=== PATIENT | male | born 1980 | race Two or more races ===

== ENCOUNTER 2023-01-21 18:08 | Emergency (ER) | payer MEDICAID ==
[~2023-01-21] VITALS: Ht 170.2 cm; Wt 115.8 kg
[2023-01-21 18:38] VITALS: BP 166/82; PULSE 89; RESP 18; TEMP 98.4; O2SAT 97
[2023-01-21] MEDS ORDERED: CEPH500C PO (20:48)
[2023-01-21] MEDS ORDERED: TETANUS-DIPTH-ACEL PERTUSSIS 0.5ML SYR Tdap IM ONE (21:00)
== END 2023-01-21 21:00 | disposition home or self-care (01) ==
LOC: ER 18:08
DX: S51.032A Puncture wound without foreign body of left elbow, initial encounter (principal); Z79.899 Other long term (current) drug therapy; W26.8XXA Contact with other sharp object(s), not elsewhere classified, initial encounter; Y93.89 Activity, other specified; Y92.89 Other specified places as the place of occurrence of the external cause; Y99.8 Other external cause status
CPT/HCPCS: 90471; 90715

== ENCOUNTER 2024-08-17 15:01 | Inpatient (IN) | payer MEDICAID ==
[~2024-08-17] VITALS: Ht 170.2 cm; Wt 112.0 kg
[~2024-08-17 15:01] MED LIST: CEPH500C PO
--- NOTE | 2024-08-17 15:30 | ED.PDOC ---
GI ASSESSMENT HPI Comments HPI: 43Y M presents to ED with chief complaint abd pain since last night with nausea and diarrhea. Pt states abd pain is located in epigastric and umbilical region. Pain worsened and became unbearable after lunch today. Pt denies h/o pain like this in the past. Pt took Omeprazole but did not experience relief. No other symptoms or history reported. Vitals Temperature: 98.3 Respiratory rate: 18 SpO2: 96% on RA Heart rate: 83 Blood pressure: 193/107 and 168/105 Past Medical History: Denies. Past Surgical History: Denies. Social History: Denies alcohol, tobacco, and illicit drug use. ABDOMINAL PAIN HPI: Poor Historian. Abdominal pain nausea vomiting nonbilious nonbloody. Diarrhea brown in color. REVIEW OF SYSTEMS: CONSTITUTIONAL: Denies acute: fever, diaphoresis, chills, generalized weakness. HEAD: Denies acute: headache, photophobia Eyes: Denies acute: Double vision, vision loss, eye pain, eye discharge. EARS: Denies acute: tinnitus, hearing loss, ear discharge, ear pain, THROAT: Denies acute: sore throat, swelling, difficulty swallowing , pain with swallowing, change in voice. NECK: Denies acute: neck pain, neck swelling, stiff neck. HEART: Denies acute : chest pain, palpitations, LUNGS: Denies acute: SOB, wheezing, cough, hemoptysis ABDOMEN: Denies acute: Vomiting, , melena , hematemesis, hematochezia SKIN: Denies acute: rash, redness, lesions, itchiness. EXTREMITIES: Denies acute: calf pain, numbness, tingling, weakness, denies pain in extremity. Denies acute: Low back pain. Neuro: Denies acute: focal neurological deficit, motor or sensory focal neurological deficit, tremors, seizure like activity, confusion, dizziness, change in mental status, loss of bowel or bladder function, cauda equina like symptoms. : Denies acute: dysuria, hematuria, flank pain, increase in urinary frequency. PSYCH: Denies acute: hallucination, suicidal ideation, homicidal ideation. PHYSICAL EXAM: General: ----[id number]-dh-[id number]----acute distress, awake and alert. Head: normocephalic, atraumatic. Neck: supple, trachea is midline, no swelling. Throat: Normal phonation. Eyes:, no erythema, no purulent discharge, no proptosis, no icterus. Heart: regular rate, regular rhythm, no significant murmur appreciated. Lungs: no apparent respiratory distress, Able to speak in full sentences. No wheezing, no rhonchi, no crackles. No stridors Clear to auscultation bilaterally. Abdomen: Epigastric and periumbilical tender to palpation, non distended, soft, no guarding, no rebound, + bowel sounds. Obese Neuro: Awake, Alert, oriented to name, self, situation, follows commands GCS=15. Speech is normal. Skin: no petechia, no purpura, no cyanosis, non-pale, not jaundice. Lower extremities: --no - Pitting edema no deformity, no focal swelling, no calf TTP. Makes eye contact. moves all four extremities. Face: no apparent facial droop. Ambulating in the ED independently. ED COURSE: Time Seen by MD: 15:20 Primary Care Provider: CRYSTAL Reviewed Notes: Nurses Notes, Medications, Allergies Allergies: Coded Allergies: NO KNOWN ALLERGIES (Unverified , 01/21/23) Home Meds Active Scripts Cephalexin Monohydrate (Cephalexin) 500 Mg Cap, 1 CAP PO TID for 7 Days, #21 CAP 0 Refills Prov:CELINA OSBORN 01/21/23 Information Source: Patient Mode of Arrival: Ambulatory Timing: Days Duration: Since onset Prehospital treatment: None Quality: Sharp Vomitus: None Stool: Loose, Brown Severity: Mild Recent: None Recent Hx of: None Pain Location: Epigastric, Other (umbilical) Modifying Factors: Nothing Associated sign and symptoms: Nausea, Diarrhea, Abdominal Pain Was a procedure done? Was a procedure done?: No GI differential Dx Differential Diagnosis: Other (DDX INCLUDE BUT NOT LIMITED TO DIVERTICULITIS, COLITIS, GASTROENTERITIS, ACUTE ABDOMEN, SBO, ENTERITIS, CONSTIPATION, VOLVULUS, APPENDICITIS, GALLBLADDER DISEASE, CHOLEDOCOLITHIASIS, ASCENDING CHOLANGITIS, PANCREATITIS, INTRAABDOMINAL MASS/NEOPLASM, HEPATITIS, UTI, PYLONEPHRITIS, KIDNEY STONE, ANEURYSM, DISSECTION, INFLAMMATORY BOWEL DISEASE, GASTROPARESIS, ISCHEMIC BOWEL.) X-Ray, Labs, Meds, VS Vital Signs Date Time Temp Pulse Resp B/P (MAP) Pulse Ox O2 Delivery O2 Flow Rate FiO2 08/17/24 18:28 98.8 73 18 187/103 (131) 97 98.8 08/17/24 15:20 98.3 83 18 193/107 (135) 96 98.3 168/105 (126) Lab Test 08/17/24 15:31 08/17/24 15:28 Range/Units White Blood Count 11.8 H 4.4-10.8 10^3/uL Red Blood Count 5.55 4.5-5.90 10^6/uL Hemoglobin 16.3 13.5-17.5 g/dL Hematocrit 49.3 41.0-53.0 % Mean Corpuscular Volume 88.9 80.0-100.0 fL Mean Corpuscular Hemoglobin 29.4 28.0-32.0 pg Mean Corpuscular Hemoglobin Concent 33.1 32.0-36.0 g/dL Red Cell Distribution Width 13.8 11.8-14.3 % Platelet Count 331 140-450 10^3/uL Mean Platelet Volume 7.6 6.9-10.8 fL Neutrophils (%) (Auto) 74.9 37.0-80.0 % Lymphocytes (%) (Auto) 14.9 10.0-50.0 % Monocytes (%) (Auto) 6.8 0.0-12.0 % Eosinophils (%) (Auto) 2.7 0.0-7.0 % Basophils (%) (Auto) 0.7 0.0-2.0 % Neutrophils # (Auto) 8.8 H 1.6-8.6 10 ^3/uL Lymphocytes # (Auto) 1.8 0.4-5.4 10 ^3/uL Monocytes # (Auto) 0.8 0-1.3 10 ^3/uL Eosinophils # (Auto) 0.3 0-0.8 10 ^3/uL Basophils # (Auto) 0.1 0-0.2 10 ^3/uL Nucleated Red Blood Cells 0.1 % Sodium Level 139 136-145 mmol/L Potassium Level 3.8 3.5-5.1 mmol/L Chloride Level 104 98-107 mmol/L Carbon Dioxide Level 27 20-31 mmol/L Anion Gap 8 5-15 Blood Urea Nitrogen 18 9-23 mg/dL Creatinine 0.99 0.700-1.30 mg/dL Glomerular Filtration Rate Calc 98 >90 mL/min BUN/Creatinine Ratio 18.2 10.0-20.0 Serum Glucose 106 74-106 mg/dL Lactic Acid Level 1.1 0.4-2.0 mmol/L Calcium Level 9.7 8.7-10.4 mg/dL Total Bilirubin 0.5 0.2-1.0 mg/dL Aspartate Amino Transferase (AST) 24 13-40 U/L Alanine Aminotransferase (ALT) 30 7-40 U/L Alkaline Phosphatase 94 46-116 U/L Troponin I High Sensitivity 9 </=54 ng/L Total Protein 7.7 5.7-8.2 g/dL Albumin 4.8 3.2-4.8 g/dL Lipase 41 12-53 U/L Urine Color Yellow Yellow Urine Clarity Clear Clear Urine pH 6.0 5.0-9.0 Urine Specific [place] 1.027 1.001-1.035 Urine Protein 1+ H Negative Urine Ketones Negative Negative Urine Blood 3+ H Negative /uL Urine Nitrite Negative Negative Urine Bilirubin Negative Negative Urine Urobilinogen Normal Negative mg/dL Urine Leukocyte Esterase Negative Negative /uL Urine RBC 343 0 - 3 /hpf Urine Microscopic WBC 11 H 0-3 /HPF Urine Squamous Epithelial Cells Few <5 /hpf Urine Bacteria None seen None Seen /hpf Urine Mucus Few None Seen Urine Glucose Normal Normal mg/dL Current Medications Medications (Trade) Dose Ordered Sig/[place] Route Start Time Stop Time Status Last Admin Sodium Chloride 1,000 ml @ 1,000 mls/hr Q1H ONCE IV 08/17/24 15:30 08/17/24 16:29 DC 08/17/24 20:16 Ondansetron HCl (Zofran) 8 mg ONCE ONCE IV 08/17/24 15:30 08/17/24 15:31 DC 08/17/24 20:[address] [address] Ph: [phone] DIAGNOSTIC IMAGING Diagnostic Imaging Report : [id number] Signed PATIENT: DOMENICA MUNGUIA ACCT: [id number] UNIT: [id number] : 1980 LOC: ER ROOM / BED: / AGE / SEX: 43 / M ADM STATUS: REG ER SERVICE 1519 ORDERING PHYSICIAN: TERI GERGORIO DO PROCEDURE(s): ABPL - CT AB PEL WO CON-NO ORAL OR IV REASON: ABD PAIN ORDER NUMBER(s): [id number], ACCESSION NUMBER(s): [id number] Procedure: CT CT AB PEL WO CON-NO ORAL OR IV 08/17/2024 03:28 PM Indication: ABD PAIN Comparison Study: None Technique: Axial images were obtained and reformatted in coronal and sagittal planes. All CT scans at this medical facility are performed using dose modulation techniques as appropriate to a performed exam including the f ollowing: Automated exposure control was utilized; adjustment of the MA and/or KV according to patient size; and use of iterative reconstruction technique. CT Dose: CTDI volume is 26.24 mGy. Dose-length product is 1574.45 mGy*cm FINDINGS: Lower Chest: Unremarkable. Hepatobiliary: Unremarkable. Spleen: Unremarkable. Pancreas: Unremarkable. Adrenal Glands: Unremarkable. tract: Moderate left hydronephrosis. A 1.4 cm stone noted in the lower pole calyx of the left kidney . No obstructing calculi are seen. There is mild fullness of the right renal pelvis. 2 subcentimeter nonobstructing right renal calculi are seen each measuring 2 mm. A 2 cm cyst is noted in the lower pole of the right kidney containing milk of calcium or mural calcification along its dependent wall. Mild diffuse bladder wall thickening could be at least in part due to lack of distention. GI tract: The stomach is grossly normal in appearance. Diffuse small bowel dilatation measuring up to 3.5 cm in caliber with a transition point noted in the right lower quadrant. The large bowel is unremarkable. The appendix is normal. Lymphatics: No mesenteric, retroperitoneal or periportal lymphadenopathy. Vasculature: The abdominal aorta is normal in caliber. Pelvic Organs: Unremarkable Bones/soft tissues: Mild degenerative grade 1 anterolisthesis of L5 on S1 due to bilateral L5 pars defects. Other: None. IMPRESSION: 1. Small-bowel obstruction (complete or incomplete) with a transition point in the right lower quadrant. No signs of perforation. Further evaluation with a small bowel series with water-soluble contrast could be completed if clinically indicated. No bowel wall or mesenteric edema. 2. Mild bilateral hydronephrosis. A 1.4 cm nonobstructing stone is seen in the lower pole of the left kidney. Subcentimeter nonobstructing right renal calculi are seen. No hydroureter. There is mild diffuse bowel wall thickening that could be at least in part due to lack of distention or reflect cystitis. Correlate with urinalysis. ATED BY: KANDICE LUGO MD DICTATED DATE/TIME: 08/17/241731 SIGNED BY: KANDICE LUGO MD SIGNED DATE/TIME: 08/17/241731 CC: Time of 1ST Reevaluation: 15:50 Reevaluation 1ST: Unchanged Time of 2ND Reevaluation: 17:55 (THE CASE WAS DISCUSSED WITH THE GENERAL SURGEON ON-CALL TEAM (HPI, PHYSICAL EXAM, LABS AND DIAGNOSTIC TESTS THAT WERE AVAILABLE AT THE TIME OF DISPOSITION, ED COURSE, TREATMENT PLAN) ON THE PHONE. THEY AGREED TO FOLLOW UP PATIENT IN CONSULT AND RECOMMEND NG TUBE PLACEMENT AND GASTROGRAFIN bowel study. DR. CASTELLANOS) Patient Education/Counseling: Diagnosis, Treatment Family Education/Counseling: No Family Present Comments Patient presented with the above HPI.--abdominal pain----workup was initiated. patient was found with the above mentioned diagnosis. the following medications were ordered: please refer to order lists of meds and tests obtained by myself Dr. Gregorio. Patient ED course and VS have been stabilized. Patient has been reassessed in the ED and remained in a stable condition. Pertinent incidental findings were discussed with the patient and/or family. Patient/family voices understanding and is agreeable with plan. Patient has been observed in the ED adequate length of time to insure improvement/stability. Escalation of care considered: Consideration of escalation to observation or admission General surgery was consulted who recommended NG tube placement. Patient was ADMITTED to the medicine team for further evaluation and treatment of their presentation. All the reports of any imaging studies that were ordered by myself were reviewed by myself. Departure 1 Departure Time of Disposition: 17:41 Impression: Primary Impression: SBO (small bowel obstruction) Disposition: ADMITTED INPATIENT Admit to: Tele Condition: Guarded Additional Instructions: [place] [address] Ph: [phone] DIAGNOSTIC IMAGING Diagnostic Imaging Report : [id number] Signed PATIENT: DOMENICA MUNGUIA ACCT: [id number] UNIT: [id number] : 1980 LOC: ER ROOM / BED: / AGE / SEX: 43 / M ADM STATUS: REG ER SERVICE 1519 ORDERING PHYSICIAN: TERI GREGORIO DO PROCEDURE(s): ABPL - CT AB PEL WO CON-NO ORAL OR IV REASON: ABD PAIN ORDER NUMBER(s): [id number], ACCESSION NUMBER(s): [id number] Procedure: CT CT AB PEL WO CON-NO ORAL OR IV 08/17/2024 03:28 PM Indication: ABD PAIN Comparison Study: None Technique: Axial images were obtained and reformatted in coronal and sagittal planes. All CT scans at this medical facility are performed using dose modulation techniques as appropriate to a performed exam including the following: Automated exposure control was utilized; adjustment of the MA and/or KV according to patient size; and use of iterative reconstruction technique. CT Dose: CTDI volume is 26.24 mGy. Dose-length product is 1574.45 mGy*cm FINDINGS: Lower Chest: Unremarkable. Hepatobiliary: Unremarkable. Spleen: Unremarkable. Pancreas: Unremarkable. Adrenal Glands: Unremarkable. tract: Moderate left hydronephrosis. A 1.4 cm stone noted in the lower pole calyx of the left kidney . No obstructing calculi are seen. There is mild fullness of the right renal pelvis. 2 subcentimeter nonobstructing right renal calculi are seen each measuring 2 mm. A 2 cm cyst is noted in the lower pole of the right kidney containing milk of calcium or mural calcification along its dependent wall. Mild diffuse bladder wall thickening could be at least in part due to lack of distention. GI tract: The stomach is grossly normal in appearance. Diffuse small bowel dilatation measuring up to 3.5 cm in caliber with a transition point noted in the right lower quadrant. The large bowel is unremarkable. The appendix is normal. Lymphatics: No mesenteric, retroperitoneal or periportal lymphadenopathy. Vasculature: The abdominal aorta is normal in caliber. Pelvic Organs: Unremarkable Bones/soft tissues: Mild degenerative grade 1 anterolisthesis of L5 on S1 due to bilateral L5 pars defects. Other: None. IMPRESSION: 1. Small-bowel obstruction (complete or incomplete) with a transition point in the right lower quadrant. No signs of perforation. Further evaluation with a small bowel series with water-soluble contrast could be completed if clinically indicated. No bowel wall or mesenteric edema. 2. Mild bilateral hydronephrosis. A 1.4 cm nonobstructing stone is seen in the lower pole of the left kidney. Subcentimeter nonobstructing right renal calculi are seen. No hydroureter. There is mild diffuse bowel wall thickening that could be at least in part due to lack of distention or reflect cystitis. Correlate with urinalysis. ATED BY: KANDICE LUGO MD DICTATED DATE/TIME: 08/17/241731 SIGNED BY: KANDICE LUGO MD SIGNED DATE/TIME: 08/17/241731 CC: Discharged With: Self Critical Care Note Critical Care Time?: Yes (45 min-critical care time only) I personally scribed for TERI GREGORIO DO ([email or web address]) on 08/17/24 at 15:30. Electronically submitted by Luzmaria Sanchez ([employer]). I personally scribed for NATHANIEL GREGORIOE J DO ([email or web address]) on 08/17/24 at 16:05. Electronically submitted by Luzmaria Sanchez ([email or web address]). I personally scribed for NATHANIEL GREGORIOE J DO ([email or web address]) on 08/17/24 at 17:33. Electronically submitted by Luzmaria Sanchez ([employer]). I personally scribed for JGTERI J DO ([email or web address]) on 08/17/24 at 17:46. Electronically submitted by Luzmaria Sanchez ([email or web address]). I personally scribed for JGTERI J DO ([email or web address]) on 08/17/24 at 19:45. Electronically submitted by Oxana Chan ([email or web address]). NATHANIEL GREGORIOE J DO Aug 17, 2024 15:30
[2024-08-17 15:50] LABS: Basophils # (auto) 0.1 10 ^3/uL (0-0.2); Basophils % (auto) 0.7 % (0.0-2.0); Eosinophils # (auto) 0.3 10 ^3/uL (0-0.8); Eosinophils % (auto) 2.7 % (0.0-7.0); Hematocrit 49.3 % (41.0-53.0); Hemoglobin 16.3 g/dL (13.5-17.5); Lymphocytes # (auto) 1.8 10 ^3/uL (0.4-5.4); Lymphocytes % (auto) 14.9 % (10.0-50.0); Mean Corpuscular Hemoglobin 29.4 pg (28.0-32.0); Mean Corpuscular Hgb Conc. 33.1 g/dL (32.0-36.0); Mean Corpuscular Volume 88.9 fL (80.0-100.0); Monocytes # (auto) 0.8 10 ^3/uL (0-1.3); Monocytes % (auto) 6.8 % (0.0-12.0); Neutrophils # (auto) 8.8 10 ^3/uL (1.6-8.6); Neutrophils % (auto) 74.9 % (37.0-80.0); Nucleated Red Blood Cells % 0.1 %; Platelet Count (auto) 331 10^3/uL (140-450); Red Blood Cells 5.55 10^6/uL (4.5-5.90); Red Cell Distribution Width 13.8 % (11.8-14.3); White Blood Cell 11.8 10^3/uL (4.4-10.8)
[2024-08-17 16:05] LABS: Alanine Aminotransferase 30 U/L (7-40); Albumin 4.8 g/dL (3.2-4.8); Alkaline Phosphatase 94 U/L (46-116); Anion Gap 8 (5-15); Aspartate Aminotransferase 24 U/L (13-40); BUN/Creatinine Ratio 18.2 (10.0-20.0); Bilirubin, Total 0.5 mg/dL (0.2-1.0); Blood Urea Nitrogen 18 mg/dL (9-23); Calcium 9.7 mg/dL (8.7-10.4); Carbon Dioxide 27 mmol/L (20-31); Chloride 104 mmol/L (98-107); Glucose 106 mg/dL (74-106); Lipase 41 U/L (12-53); Potassium 3.8 mmol/L (3.5-5.1); Sodium 139 mmol/L (136-145); Total Protein 7.7 g/dL (5.7-8.2)
[2024-08-17 16:24] LABS: Urine Bacteria None Seen /hpf (None Seen)
[2024-08-17 16:46] LABS: Urine Blood 3+ /uL (Negative); Urine Clarity Clear (Clear); Urine Color Yellow (Yellow); Urine Mucus FEW (None Seen); Urine Protein, UAD 1+ (Negative); Urine Specific Gravity 1.027 (1.001-1.035); Urine Squamous Epithelial Cell FEW /hpf (<5); Urine Urobilinogen Normal (Negative); Urine WBC 11 /HPF (0-3)
--- NOTE | 2024-08-17 17:34 | DVH ---
Procedure: CT CT AB PEL WO CON-NO ORAL OR IV 08/17/2024 03:28 PM Indication: ABD PAIN Comparison Study: None Technique: Axial images were obtained and reformatted in coronal and sagittal planes. All CT scans at this medical facility are performed using dose modulation techniques as appropriate to a performed e xam including the following: Automated exposure control was utilized; adjustment of the MA and/or KV according to patient size; and use of iterative reconstruction technique. CT Dose: CTDI volume is 26. 24 mGy. Dose-length product is 1574.45 mGy*cm FINDINGS: Lower Chest: Unremarkable. Hepatobiliary: Unremarkable. Spleen: Unremarkable. Pancreas: Unremarkable. Adrenal Glands: Unremarkable. tract: Moderate left hydronephrosis. A 1.4 cm stone noted in the lower pole calyx of the left kid melida . No obstructing calculi are seen. There is mild fullness of the right renal pelvis. 2 subcenti meter nonobstructing right renal calculi are seen each measuring 2 mm. A 2 cm cyst is noted in the lo wer pole of the right kidney containing milk of calcium or mural calcification along its dependent wa ll. Mild diffuse bladder wall thickening could be at least in part due to lack of distention. GI tract: The stomach is grossly normal in appearance. Diffuse small bowel dilatation measuring up to 3.5 cm in caliber with a transition point noted in the right lower quadrant. The large bowel is unre markable. The appendix is normal. Lymphatics: No mesenteric, retroperitoneal or periportal lymphadenopathy. Vasculature: The abdominal aorta is normal in caliber. Pelvic Organs: Unremarkable Bones/soft tissues: Mild degenerative grade 1 anterolisthesis of L5 on S1 due to bilateral L5 pars de fects. Other: None. IMPRESSION: 1. Small-bowel obstruction (complete or incomplete) with a transition point in the right lower quadra nt. No signs of perforation. Further evaluation with a small bowel series with water-soluble contras t could be completed if clinically indicated. No bowel wall or mesenteric edema. 2. Mild bilateral hydronephrosis. A 1.4 cm nonobstructing stone is seen in the lower pole of the left kidney. Subcentimeter nonobstructing right renal calculi are seen. No hydroureter. There is mild dif fuse bowel wall thickening that could be at least in part due to lack of distention or reflect cystit is. Correlate with urinalysis.
[2024-08-17] MEDS: SODIUM CHLORIDE 0.9% 1,000 ML IV ONE ×2 (19:30→20:16)
[2024-08-17] MEDS: ONDANSETRON HCL 4 MG/2 ML VIAL IV ONE (20:15)
[2024-08-17] MEDS: MORPHINE SULFATE INJ 2 MG/ml SYRG IV PRN (20:17)
[2024-08-17] MEDS: PANTOPRAZOLE 40 MG/10 ML VIAL INJ IV ONE (20:18)
[2024-08-17 20:22] VITALS: PULSE 87; RESP 20; O2SAT 96
--- NOTE | 2024-08-17 23:31 | DVHHP2 ---
History of Present Illness Reason for Visit: Abdominal pain History of Present Illness 43-year-old male presents for evaluation of abdominal pain. Patient endorses a one day history of sharp epigastric abdominal pain with associated nausea and diarrhea. He also reports occasional chills. No cardiac or respiratory complaints. Past Medical History Denies Past Surgical History Denies Family History Noncontributory Smoke: No ALCOHOL: none Drugs: None Lives: with Family Review of Systems Review of Systems Review of systems are currently negative otherwise addressed in HPI. Allergies: Coded Allergies: NO KNOWN ALLERGIES (Unverified , 01/21/23) Medications Current Medications Medications Dose Ordered Sig/Suyapa Route Start Time Stop Time Status Last Admin Dose Admin Pantoprazole Sodium 40 mg DAILY IV 08/18/24 10:00 Ondansetron HCl 4 mg Q4HP PRN IV 08/17/24 19:30 Morphine Sulfate 2 mg Q4HPRN PRN IV 08/17/24 19:30 08/17/24 20:17 2 MG Exam Vital Signs Vital Signs Date Time Temp Pulse Resp B/P (MAP) Pulse Ox O2 Delivery O2 Flow Rate FiO2 08/17/24 20:44 84 20 156/87 (110) 95 08/17/24 20:22 Room Air* 0 21 08/17/24 20:17 98.4 98.4 Exam ) Gen: 43-year-old male in mild distress Skin: Warm, dry, normal color and texture, no rash. HEENT: Normocephalic atraumatic, mucous membranes moist and pink. Neck: Cervical and supraclavicular nodes normal without enlargement, trachea is midline, thyroid gland is normal without masses. Pulmonary: Clear to auscultation and percussion bilaterally. Cardiac: Regular rate and rhythm. No murmur Abdomen: Soft, epigastric tenderness, nondistended, bowel sounds present all 4 quadrants, no guarding, no rigidity, no organomegaly. Extremities: No cyanosis, clubbing, no edema Neuro: Cranial nerves II through XII grossly intact, normal affect and speech, no focal motor deficits. Labs/Xrays ORDERING PHYSICIAN: TERI GREGORIO DO PROCEDURE(s): CXRP - CHEST PORTABLE REASON: NG TUBE PLACEMENT ORDER NUMBER(s): [id number], ACCESSION NUMBER(s): [id number] CHEST RADIOGRAPH Indication: NG TUBE PLACEMENT Technique: Single frontal view of the chest was obtained COMPARISON: None FINDINGS / IMPRESSION: Lines and Tubes: Tip of the NG tube is not adequately visualized on this radiograph, may be in the GE junction region and should be further advanced. Lungs: No abnormality demonstrated. Pleura: No effusion. No pneumothorax. Cardiomediastinal contours: Unremarkable RING PHYSICIAN: TERI GREGORIO DO PROCEDURE(s): ABPL - CT AB PEL WO CON-NO ORAL OR IV REASON: ABD PAIN ORDER NUMBER(s): [id number], ACCESSION NUMBER(s): [id number] Procedure: CT CT AB PEL WO CON-NO ORAL OR IV 08/17/2024 03:28 PM Indication: ABD PAIN Comparison Study: None Technique: Axial images were obtained and reformatted in coronal and sagittal planes. All CT scans at this medical facility are performed using dose modulation techniques as appropriate to a performed exam including the following: Automated exposure control was utilized; adjustment of the MA and/or KV according to patient size; and use of iterative reconstruction technique. CT Dose: CTDI volume is 26.24 mGy. Dose-length product is 1574.45 mGy*cm FINDINGS: Lower Chest: Unremarkable. Hepatobiliary: Unremarkable. Spleen: Unremarkable. Pancreas: Unremarkable. Adrenal Glands: Unremarkable. tract: Moderate left hydronephrosis. A 1.4 cm stone noted in the lower pole calyx of the left kidney . No obstructing calculi are seen. There is mild fullness of the right renal pelvis. 2 subcentimeter nonobstructing right renal calculi are seen each measuring 2 mm. A 2 cm cyst is noted in the lower pole of the right kidney containing milk of calcium or mural calcification along its dependent wall. Mild diffuse bladder wall thickening could be at least in part due to lack of distention. GI tract: The stomach is grossly normal in appearance. Diffuse small bowel dilatation measuring up to 3.5 cm in caliber with a transition point noted in the right lower quadrant. The large bowel is unremarkable. The appendix is normal. Lymphatics: No mesenteric, retroperitoneal or periportal lymphadenopathy. Vasculature: The abdominal aorta is normal in caliber. Pelvic Organs: Unremarkable Bones/soft tissues: Mild degenerative grade 1 anterolisthesis of L5 on S1 due to bilateral L5 pars defects. Other: None. IMPRESSION: 1. Small-bowel obstruction (complete or incomplete) with a transition point in the right lower quadrant. No signs of perforation. Further evaluation with a small bowel series with water-soluble contrast could be completed if clinically indicated. No bowel wall or mesenteric edema. 2. Mild bilateral hydronephrosis. A 1.4 cm nonobstructing stone is seen in the lower pole of the left kidney. Subcentimeter nonobstructing right renal calculi are seen. No hydroureter. There is mild diffuse bowel wall thickening that could be at least in part due to lack of distention or reflect cystitis. Correlate with urinalysis. Labs Test 08/17/24 15:31 08/17/24 15:28 Range/Units White Blood Count 11.8 H 4.4-10.8 10^3/uL Red Blood Count 5.55 4.5-5.90 10^6/uL Hemoglobin 16.3 13.5-17.5 g/dL Hematocrit 49.3 41.0-53.0 % Mean Corpuscular Volume 88.9 80.0-100.0 fL Mean Corpuscular Hemoglobin 29.4 28.0-32.0 pg Mean Corpuscular Hemoglobin Concent 33.1 32.0-36.0 g/dL Red Cell Distribution Width 13.8 11.8-14.3 % Platelet Count 331 140-450 10^3/uL Mean Platelet Volume 7.6 6.9-10.8 fL Neutrophils (%) (Auto) 74.9 37.0-80.0 % Lymphocytes (%) (Auto) 14.9 10.0-50.0 % Monocytes (%) (Auto) 6.8 0.0-12.0 % Eosinophils (%) (Auto) 2.7 0.0-7.0 % Basophils (%) (Auto) 0.7 0.0-2.0 % Neutrophils # (Auto) 8.8 H 1.6-8.6 10 ^3/uL Lymphocytes # (Auto) 1.8 0.4-5.4 10 ^3/uL Monocytes # (Auto) 0.8 0-1.3 10 ^3/uL Eosinophils # (Auto) 0.3 0-0.8 10 ^3/uL Basophils # (Auto) 0.1 0-0.2 10 ^3/uL Nucleated Red Blood Cells 0.1 % Sodium Level 139 136-145 mmol/L Potassium Level 3.8 3.5-5.1 mmol/L Chloride Level 104 98-107 mmol/L Carbon Dioxide Level 27 20-31 mmol/L Anion Gap 8 5-15 Blood Urea Nitrogen 18 9-23 mg/dL Creatinine 0.99 0.700-1.30 mg/dL Glomerular Filtration Rate Calc 98 >90 mL/min BUN/Creatinine Ratio 18.2 10.0-20.0 Serum Glucose 106 74-106 mg/dL Lactic Acid Level 1.1 0.4-2.0 mmol/L Calcium Level 9.7 8.7-10.4 mg/dL Total Bilirubin 0.5 0.2-1.0 mg/dL Aspartate Amino Transferase (AST) 24 13-40 U/L Alanine Aminotransferase (ALT) 30 7-40 U/L Alkaline Phosphatase 94 46-116 U/L Troponin I High Sensitivity 9 </=54 ng/L Total Protein 7.7 5.7-8.2 g/dL Albumin 4.8 3.2-4.8 g/dL Lipase 41 12-53 U/L Urine Color Yellow Yellow Urine Clarity Clear Clear Urine pH 6.0 5.0-9.0 Urine Specific [place] 1.027 1.001-1.035 Urine Protein 1+ H Negative Urine Ketones Negative Negative Urine Blood 3+ H Negative /uL Urine Nitrite Negative Negative Urine Bilirubin Negative Negative Urine Urobilinogen Normal Negative mg/dL Urine Leukocyte Esterase Negative Negative /uL Urine RBC 343 0 - 3 /hpf Urine Microscopic WBC 11 H 0-3 /HPF Urine Squamous Epithelial Cells Few <5 /hpf Urine Bacteria None seen None Seen /hpf Urine Mucus Few None Seen Urine Glucose Normal Normal mg/dL Assessment/Plan Assessment/Plan Assessment Acute abdominal pain Small-bowel obstruction Essential hypertension Plan Admit the patient to [facility] to the hospitalist Surgical consultation Small-bowel follow-through NPO Maintenance IV fluids Pain management Review treatment per orders. Plan discussed with: Patient My Orders Orders - MARY PORTILLO AGACNP Procedure Category Date Status Time Small Bowel Series-W XY 08/17/24 Logged Gastrogra 19:28 Sodium Chloride 0.9% PHA 08/17/24 In Process 19:30 Basic Metabolic Panel LAB 08/18/24 Verified 04:00 Admit ADMIT 08/17/24 Transmitted 19:28 Ondansetron Hcl PHA 08/17/24 In Process (Zofran) 19:30 Npo (Nothing By DIET 08/18/24 Transmitted Mouth) Diet Breakfast Condition: Stable DONNELL 08/17/24 In Process 19:28 Bedrest With Bathroom DONNELL 08/17/24 In Process Privileg 19:28 Morphine Sulfate PHA 08/17/24 In Process Injection 19:30 Pantoprazole PHA 08/18/24 In Process (Protonix) 10:00 Date of Service: Aug 17, 2024 Billing Provider: MARY PORTILLO Common Visit Codes: [id number] INP/OBS CARE (HIGH) MARY PORTILLO Aug 17, 2024 23:31
[2024-08-18] VITALS (8 sets, daily range): BP systolic 112–183; BP diastolic 60–97; PULSE 78–105; RESP 17–21; TEMP 98–98.6; O2SAT 92–98
--- NOTE | 2024-08-18 00:57 | DVH ---
CHEST RADIOGRAPH Indication: NG TUBE PLACEMENT Technique: Single frontal view of the chest was obtained COMPARISON: None FINDINGS / IMPRESSION: Lines and Tubes: Tip of the NG tube is not adequately visualized on this radiograph, may be in the G E junction region and should be further advanced. Lungs: No abnormality demonstrated. Pleura: No effusion. No pneumothorax. Cardiomediastinal contours: Unremarkable
[2024-08-18] MEDS: ONDANSETRON HCL 4 MG/2 ML VIAL IV PRN (02:48)
[2024-08-18] MEDS: LABETALOL HCL 20 MG/4 ML VL IV ONE (04:21)
[2024-08-18 06:42] LABS: Anion Gap 9 (5-15); Carbon Dioxide 25 mmol/L (20-31); Chloride 104 mmol/L (98-107); Potassium 3.6 mmol/L (3.5-5.1); Sodium 138 mmol/L (136-145)
[2024-08-18 06:44] LABS: Calcium 9.3 mg/dL (8.7-10.4)
[2024-08-18 06:49] LABS: BUN/Creatinine Ratio 12.4 (10.0-20.0); Blood Urea Nitrogen 11 mg/dL (9-23)
[2024-08-18 06:50] LABS: Glucose 134 mg/dL (74-106)
[2024-08-18] MEDS: PANTOPRAZOLE 40 MG/10 ML VIAL INJ IV SCH (10:30)
--- NOTE | 2024-08-18 11:17 | DVHINCON2 ---
Date of service: Aug 18, 2024 Family History: Patient reports no known family medical history. Allergies: Coded Allergies: NO KNOWN ALLERGIES (Unverified , 01/21/23) Home Meds Active Scripts Cephalexin Monohydrate (Cephalexin) 500 Mg Cap, 1 CAP PO TID for 7 Days, #21 CAP 0 Refills Prov:CELINA OSBORN DANIELA 01/21/23 Current Medications Current Medications Medications (Trade) Dose Ordered Sig/Suyapa Route PRN Reason Start Time Stop Time Status Last Admin Pantoprazole Sodium (Protonix) 40 mg DAILY IV 08/18/24 10:00 08/18/24 10:30 Ondansetron HCl (Zofran) 4 mg Q4HP PRN IV NAUSEA / VOMITING 08/17/24 19:30 08/18/24 02:48 Morphine Sulfate 2 mg Q4HPRN PRN IV SEVERE PAIN (7-10 PAIN SCALE) 08/17/24 19:30 08/18/24 04:32 Vital Signs Vital Signs Date Time Temp Pulse Resp B/P (MAP) Pulse Ox O2 Delivery O2 Flow Rate FiO2 08/18/24 08:50 98.2 101 18 159/97 (117) 92 98.2 08/18/24 08:00 Room Air* 0 21 Labs/Diagnostic Data Labs Test 08/18/24 06:03 08/17/24 15:31 08/17/24 15:28 Range/Units Sodium Level 138 136-145 mmol/L Potassium Level 3.6 3.5-5.1 mmol/L Chloride Level 104 98-107 mmol/L Carbon Dioxide Level 25 20-31 mmol/L Anion Gap 9 5-15 Blood Urea Nitrogen 11 9-23 mg/dL Creatinine 0.89 0.700-1.30 mg/dL Glomerular Filtration Rate Calc 110 >90 mL/min BUN/Creatinine Ratio 12.4 10.0-20.0 Serum Glucose 134 H 74-106 mg/dL Calcium Level 9.3 8.7-10.4 mg/dL White Blood Count 11.8 H 4.4-10.8 10^3/uL Red Blood Count 5.55 4.5-5.90 10^6/uL Hemoglobin 16.3 13.5-17.5 g/dL Hematocrit 49.3 41.0-53.0 % Mean Corpuscular Volume 88.9 80.0-100.0 fL Mean Corpuscular Hemoglobin 29.4 28.0-32.0 pg Mean Corpuscular Hemoglobin Concent 33.1 32.0-36.0 g/dL Red Cell Distribution Width 13.8 11.8-14.3 % Platelet Count 331 140-450 10^3/uL Mean Platelet Volume 7.6 6.9-10.8 fL Neutrophils (%) (Auto) 74.9 37.0-80.0 % Lymphocytes (%) (Auto) 14.9 10.0-50.0 % Monocytes (%) (Auto) 6.8 0.0-12.0 % Eosinophils (%) (Auto) 2.7 0.0-7.0 % Basophils (%) (Auto) 0.7 0.0-2.0 % Neutrophils # (Auto) 8.8 H 1.6-8.6 10 ^3/uL Lymphocytes # (Auto) 1.8 0.4-5.4 10 ^3/uL Monocytes # (Auto) 0.8 0-1.3 10 ^3/uL Eosinophils # (Auto) 0.3 0-0.8 10 ^3/uL Basophils # (Auto) 0.1 0-0.2 10 ^3/uL Nucleated Red Blood Cells 0.1 % Lactic Acid Level 1.1 0.4-2.0 mmol/L Total Bilirubin 0.5 0.2-1.0 mg/dL Aspartate Amino Transferase (AST) 24 13-40 U/L Alanine Aminotransferase (ALT) 30 7-40 U/L Alkaline Phosphatase 94 46-116 U/L Troponin I High Sensitivity 9 </=54 ng/L Total Protein 7.7 5.7-8.2 g/dL Albumin 4.8 3.2-4.8 g/dL Lipase 41 12-53 U/L Urine Color Yellow Yellow Urine Clarity Clear Clear Urine pH 6.0 5.0-9.0 Urine Specific [place] 1.027 1.001-1.035 Urine Protein 1+ H Negative Urine Ketones Negative Negative Urine Blood 3+ H Negative /uL Urine Nitrite Negative Negative Urine Bilirubin Negative Negative Urine Urobilinogen Normal Negative mg/dL Urine Leukocyte Esterase Negative Negative /uL Urine RBC 343 0 - 3 /hpf Urine Microscopic WBC 11 H 0-3 /HPF Urine Squamous Epithelial Cells Few <5 /hpf Urine Bacteria None seen None Seen /hpf Urine Mucus Few None Seen Urine Glucose Normal Normal mg/dL Assessment patient with resoling partial sbo, will dc ngt amnd start po intake, ca;ll if problems Plan discussed with: Patient JODIE MALIK MD Aug 18, 2024 11:17
--- NOTE | 2024-08-18 12:10 | DVH ---
Procedure: XY SMALL BOWEL SERIES-W GASTROGRA Reason for study/Clinical History: sbo Comparison Study: None available at time of dictation. Technique: Single contrast small bowel series performed with 150 mL of dilute Gastrografin with contr ast given through indwelling NG tube FINDINGS/IMPRESSION: Initial tube coverer view of the abdomen and pelvis appears demonstrates no acute process. Contrast is identified within the colon by 1 hour. This represents a normal small bowel transit time .
--- NOTE | 2024-08-18 12:43 | DVHPN2 ---
Reviewed: Care Plan, H&P, Labs, Medications, Previous Orders, Radiology Changes from previous H/P or p: No Changes Objective Vitals Vital Signs Date Time Temp Pulse Resp B/P (MAP) Pulse Ox O2 Delivery O2 Flow Rate FiO2 08/18/24 08:50 98.2 101 18 159/97 (117) 92 98.2 08/18/24 08:00 Room Air* 0 21 Intake/Output Intake and Output 08/18/24 07:00 Intake Total 0 ml Balance 0 ml Intake Oral 0 ml Medications Current Medications Medications Dose Ordered Sig/Suyapa Route Start Time Stop Time Status Last Admin Dose Admin Pantoprazole Sodium 40 mg DAILY IV 08/18/24 10:00 08/18/24 10:30 40 MG Ondansetron HCl 4 mg Q4HP PRN IV 08/17/24 19:30 08/18/24 02:48 4 MG Morphine Sulfate 2 mg Q4HPRN PRN IV 08/17/24 19:30 08/18/24 04:32 2 MG Laboratory Results Laboratory Tests 08/17/24 15:31 08/18/24 06:03 Chemistry Test 08/17/24 15:31 08/18/24 06:03 Albumin 4.8 g/dL (3.2-4.8) Calcium Level 9.7 mg/dL (8.7-10.4) 9.3 mg/dL (8.7-10.4) Total Protein 7.7 g/dL (5.7-8.2) Lipid panel Test 08/17/24 15:31 Lipase 41 U/L (12-53) LFT Test 08/17/24 15:31 Alanine Aminotransferase (ALT) 30 U/L (7-40) Alkaline Phosphatase 94 U/L (46-116) Aspartate Amino Transferase (AST) 24 U/L (13-40) Total Bilirubin 0.5 mg/dL (0.2-1.0) Urinalysis Test 08/17/24 15:28 Urine Color Yellow (Yellow) Urine Clarity Clear (Clear) Urine pH 6.0 (5.0-9.0) Urine Specific [place] 1.027 (1.001-1.035) Urine Protein 1+ (Negative) H Urine Ketones Negative (Negative) Urine Blood 3+ /uL (Negative) H Urine Nitrite Negative (Negative) Urine Bilirubin Negative (Negative) Urine Urobilinogen Normal mg/dL (Negative) Urine Leukocyte Esterase Negative /uL (Negative) Urine RBC 343 /hpf (0 - 3) Urine Microscopic WBC 11 /HPF (0-3) H Urine Squamous Epithelial Cells Few /hpf (<5) Urine Bacteria None seen /hpf (None Seen) Urine Mucus Few (None Seen) Urine Glucose Normal mg/dL (Normal) Labs and/or images reviewed: Labs reviewed by me, Image(s) reviewed by me Assessment/Plan Assessment/Plan Acute abdominal pain Acute Small-bowel obstruction consult by surgeon Dr. Nguyen appreciated SBO improving, NG tube removed and patient is on soft diet Essential hypertension : Metoprolol tartrate Plan discussed with: Patient Date of Service: Aug 18, 2024 Billing Provider: MATTHEW TELLO MD Common Visit Codes: [id number] INP/OBS CARE(HIGH) MATTHEW TELLO MD Aug 18, 2024 12:43
[2024-08-18] MEDS: METOPROLOL TARTRATE 50 MG TAB PO SCH (14:00)
[2024-08-18] MEDS: GASTROGRAFIN 120 ML SOL ONE (17:00)
[2024-08-19 01:00] VITALS: BP 119/64; PULSE 81; RESP 18; TEMP 98.2; O2SAT 91
[2024-08-19 05:00] VITALS: BP 132/62; PULSE 72; RESP 18; TEMP 98.4; O2SAT 98
[2024-08-19 08:28] VITALS: RESP 18
[2024-08-19 09:00] VITALS: BP 116/65; PULSE 63; RESP 19; TEMP 98.1; O2SAT 96
--- NOTE | 2024-08-19 10:53 | DVHPN2 ---
Reviewed: Care Plan, H&P, Labs, Medications, Previous Orders, Radiology Changes from previous H/P or p: No Changes Objective Vitals Vital Signs Date Time Temp Pulse Resp B/P (MAP) Pulse Ox O2 Delivery O2 Flow Rate FiO2 08/19/24 09:45 63 116/65 08/19/24 09:00 98.1 19 96 98.1 08/19/24 08:28 Room Air* 0 21 Intake/Output Intake and Output 08/19/24 07:00 Intake Total 1150 ml Balance 1150 ml Intake Oral 1150 ml # Voids 7 # Bowel Movements 4 Medications Current Medications Medications Dose Ordered Sig/Suyapa Route Start Time Stop Time Status Last Admin Dose Admin Pantoprazole Sodium 40 mg DAILY IV 08/18/24 10:00 08/19/24 09:44 40 MG Ondansetron HCl 4 mg Q4HP PRN IV 08/17/24 19:30 08/18/24 02:48 4 MG Morphine Sulfate 2 mg Q4HPRN PRN IV 08/17/24 19:30 08/18/24 04:32 2 MG Metoprolol Tartrate 50 mg BID PO 08/18/24 14:00 08/19/24 09:45 50 MG Laboratory Results Laboratory Tests 08/17/24 15:31 08/18/24 06:03 Urinalysis Test 08/17/24 15:28 Urine Color Yellow (Yellow) Urine Clarity Clear (Clear) Urine pH 6.0 (5.0-9.0) Urine Specific [place] 1.027 (1.001-1.035) Urine Protein 1+ (Negative) H Urine Ketones Negative (Negative) Urine Blood 3+ /uL (Negative) H Urine Nitrite Negative (Negative) Urine Bilirubin Negative (Negative) Urine Urobilinogen Normal mg/dL (Negative) Urine Leukocyte Esterase Negative /uL (Negative) Urine RBC 343 /hpf (0 - 3) Urine Microscopic WBC 11 /HPF (0-3) H Urine Squamous Epithelial Cells Few /hpf (<5) Urine Bacteria None seen /hpf (None Seen) Urine Mucus Few (None Seen) Urine Glucose Normal mg/dL (Normal) Labs and/or images reviewed: Labs reviewed by me, Image(s) reviewed by me Assessment/Plan Assessment/Plan Acute abdominal pain Acute Small-bowel obstruction consult by surgeon Dr. Nguyen appreciated SBO improving, NG tube removed and patient is on soft diet Essential hypertension : Metoprolol tartrate Plan discussed with: Patient My Orders Orders - MATTHEW TELLO MD Procedure Category Date Status Time Metoprolol Tartrate PHA 08/18/24 In Process Tablet (Lopressor Ta 14:00 Date of Service: Aug 19, 2024 Billing Provider: MATTHEW TELLO MD Common Visit Codes: [id number] INP/OBS CARE(HIGH) MATTHEW TELLO MD Aug 19, 2024 10:53
--- NOTE | 2024-08-19 10:58 | DVHDS2 ---
Discharge Summary Date of Admission Aug 17, 2024 at 19:28 Date of Discharge: Aug 19, 2024 Admitting Diagnosis Abdominal pain nausea and vomiting Wounds: None Labs/Diagnostic Data: Laboratory Results Test 08/18/24 06:03 08/17/24 15:31 08/17/24 15:28 Sodium Level 138 mmol/L (136-145) Potassium Level 3.6 mmol/L (3.5-5.1) Chloride Level 104 mmol/L (98-107) Carbon Dioxide Level 25 mmol/L (20-31) Anion Gap 9 (5-15) Blood Urea Nitrogen 11 mg/dL (9-23) Creatinine 0.89 mg/dL (0.700-1.30) Glomerular Filtration Rate Calc 110 mL/min (>90) BUN/Creatinine Ratio 12.4 (10.0-20.0) Serum Glucose 134 mg/dL (74-106) Calcium Level 9.3 mg/dL (8.7-10.4) White Blood Count 11.8 10^3/uL (4.4-10.8) Red Blood Count 5.55 10^6/uL (4.5-5.90) Hemoglobin 16.3 g/dL (13.5-17.5) Hematocrit 49.3 % (41.0-53.0) Mean Corpuscular Volume 88.9 fL (80.0-100.0) Mean Corpuscular Hemoglobin 29.4 pg (28.0-32.0) Mean Corpuscular Hemoglobin Concent 33.1 g/dL (32.0-36.0) Red Cell Distribution Width 13.8 % (11.8-14.3) Platelet Count 331 10^3/uL (140-450) Mean Platelet Volume 7.6 fL (6.9-10.8) Neutrophils (%) (Auto) 74.9 % (37.0-80.0) Lymphocytes (%) (Auto) 14.9 % (10.0-50.0) Monocytes (%) (Auto) 6.8 % (0.0-12.0) Eosinophils (%) (Auto) 2.7 % (0.0-7.0) Basophils (%) (Auto) 0.7 % (0.0-2.0) Neutrophils # (Auto) 8.8 10 ^3/uL (1.6-8.6) Lymphocytes # (Auto) 1.8 10 ^3/uL (0.4-5.4) Monocytes # (Auto) 0.8 10 ^3/uL (0-1.3) Eosinophils # (Auto) 0.3 10 ^3/uL (0-0.8) Basophils # (Auto) 0.1 10 ^3/uL (0-0.2) Nucleated Red Blood Cells 0.1 % Lactic Acid Level 1.1 mmol/L (0.4-2.0) Total Bilirubin 0.5 mg/dL (0.2-1.0) Aspartate Amino Transferase (AST) 24 U/L (13-40) Alanine Aminotransferase (ALT) 30 U/L (7-40) Alkaline Phosphatase 94 U/L (46-116) Troponin I High Sensitivity 9 ng/L (</=54) Total Protein 7.7 g/dL (5.7-8.2) Albumin 4.8 g/dL (3.2-4.8) Lipase 41 U/L (12-53) Urine Color Yellow (Yellow) Urine Clarity Clear (Clear) Urine pH 6.0 (5.0-9.0) Urine Specific [place] 1.027 (1.001-1.035) Urine Protein 1+ (Negative) Urine Ketones Negative (Negative) Urine Blood 3+ /uL (Negative) Urine Nitrite Negative (Negative) Urine Bilirubin Negative (Negative) Urine Urobilinogen Normal mg/dL (Negative) Urine Leukocyte Esterase Negative /uL (Negative) Urine RBC 343 /hpf (0 - 3) Urine Microscopic WBC 11 /HPF (0-3) Urine Squamous Epithelial Cells Few /hpf (<5) Urine Bacteria None seen /hpf (None Seen) Urine Mucus Few (None Seen) Urine Glucose Normal mg/dL (Normal) Other Laboratory Tests 08/18/24 06:03 08/17/24 15:31 Brief Hx & Hospital Course: 43 Year-old male came in for abdominal pain found to have mild small bowel obstruction treated conservatively. Symptoms have resolved seen by surgeon Dr. Nguyen. Patient eating at the time of discharge stable vital signs and wants to go home. Discharged home. Consults/Reason for consult Surgeon Dr. Nguyen Operations or Procedures CT abdomen pelvis without contrast Condition at Discharge: Fair Final Diagnosis/Problems List Acute abdominal pain Acute Small-bowel obstruction consult by surgeon Dr. Nguyen appreciated SBO improving, NG tube removed and patient is on soft diet Essential hypertension : Metoprolol tartrate Discharge Disposition: Home Discharge Instruct/Medications Diet: Cardiac 2g Na,low cholest Activity: Light activity Follow Up/Referral: Follow up with your primary doc Medications: none 35 (Time Taken for discharge summary 35 minutes) Discharge Statement: "Patient was advised to return to the ER or call 911 if any headaches, dizziness, shortness of breath, chest pain, abdominal pain, bleeding, fevers, or worsening of medical condition. Patient was counseled about treatment plan, medications, possible side effects, patientverbalized understanding. All questions were answered to the best of my ability. This discharge took greater then 30 minutes in planning, reviewing documentation, counseling the patient, and discussing with other team members." ASSESSMENT ASSESSMENT Hospital Course Improved Assessment Acute abdominal pain Acute Small-bowel obstruction consult by surgeon Dr. Nguyen appreciated SBO improving, NG tube removed and patient is on soft diet Essential hypertension : Metoprolol tartrate Date of Service: Aug 19, 2024 Billing Provider: MATTHEW TELLO MD Common Visit Codes: [id number] INP/OBS CARE(HIGH) MATTHEW TELLO MD Aug 19, 2024 10:58
--- NOTE | 2024-08-19 13:11 | DVHPN2 ---
Progress Note Date Seen: Aug 19, 2024 Medical Necessity Reason Pt with a Central, PICC or Fol: No Objective vital signs Vital Sign Date Time Temp Pulse Resp B/P (MAP) Pulse Ox O2 Delivery O2 Flow Rate FiO2 08/19/24 09:45 63 116/65 08/19/24 09:00 98.1 19 96 98.1 08/19/24 08:28 Room Air* 0 21 Total Intake and Output 08/18/24 08/18/24 08/19/24 15:00 23:00 07:00 Intake Total 700 ml 450 ml Balance 700 ml 450 ml medications Current Medications Medications Dose Ordered Sig/Suyapa Route Start Time Stop Time Status Last Admin Dose Admin Pantoprazole Sodium 40 mg DAILY IV 08/18/24 10:00 08/19/24 09:44 40 MG Ondansetron HCl 4 mg Q4HP PRN IV 08/17/24 19:30 08/18/24 02:48 4 MG Morphine Sulfate 2 mg Q4HPRN PRN IV 08/17/24 19:30 08/18/24 04:32 2 MG Metoprolol Tartrate 50 mg BID PO 08/18/24 14:00 08/19/24 09:45 50 MG laboratory and microbiology Laboratory Tests 08/18/24 06:03 08/17/24 15:31 Test 08/18/24 06:03 Range/Units Serum Glucose 134 H 74-106 mg/dL Problem List/Assessment/Plan Problem List/Assessment/Plan 08/19/24 CONTINUING TO HAVE NORMAL BOWEL ACTIVITY, TOLERATING PO INTAKE, OK TO DISCHARGE, TO FOLLOW UP WITH PRIMARY MD Plan discussed with: Patient JODIE MALIK MD Aug 19, 2024 13:11
[2024-08-19] MEDS ORDERED: METO-158 PO (13:19)
== END 2024-08-19 14:30 | disposition home or self-care (01) | DRG 247 ==
LOC: ER 15:01 → OVERFLOW 19:28 → EAST 19:36
PROVIDERS: ADMIT Family Medicine; ATTEND Family Medicine
DX: K56.600 Partial intestinal obstruction, unspecified as to cause (principal); I10 Essential (primary) hypertension; N13.2 Hydronephrosis with renal and ureteral calculous obstruction; Z79.899 Other long term (current) drug therapy
CPT/HCPCS: 36415; 71045; 74176; 74250; 80048; 80053; 81001; 83605; 83690; 84484; 85025; 96361; 96374; 96375; G0378; J2405; J2470